=== PATIENT | female | born 1955 | race Caucasian/White ===

== ENCOUNTER 2020-09-13 12:06 | Observation (INO) | payer OTHER ==
--- NOTE | 2020-09-13 12:27 | ERPHSYRPT ---
- History of Present Illness Time Seen by Provider: 09/13/20 12:28 Historian: patient Exam Limitations: no limitations Physician History: Patient is a 65-year-old female history of diabetes and hypercholesterolemia presents to our ED with complaints of chest pressure and left jaw pain. Symptoms started approximately 2 days ago. Symptoms have been constant. Patient also observed that her blood pressure is elevated. Symptoms are constant. Symptoms are mild to moderate in intensity. No specific worsening or improving factors. Patient followed up with her primary care doctor who advised patient to come to our ED for a cardiac work-up. Patient admits to experiencing shortness of breath with exertion however she attributes this to her age. Patient voices no other complaints or concerns at this time. Timing/Duration: yesterday Activities at Onset: none Quality: pressure Location: substernal Chest Pain Radiation: jaw Severity of Pain-Max: moderate Severity of Pain-Current: mild Modifying Factors: Improves With: nothing Associated Symptoms: denies symptoms Prior Chest Pain/Cardiac Workup: no prior chest pain Nitro Today/Relief: no nitro taken today Aspirin Treatment Today: no aspirin today Allergies/Adverse Reactions: No Known Drug Allergies Allergy (Verified 09/13/20 16:08) Home Medications: Atorvastatin Calcium 10 mg PO DAILY 09/13/20 [History] Meloxicam 15 mg PO DAILY 09/13/20 [History] Metformin HCl 500 mg [Glucophage 500 MG] 500 mg PO DAILY 09/13/20 [History] - Review of Systems Constitutional: No Symptoms, No Fever, No Chills Eyes: No Symptoms Ears, Nose, & Throat: No Symptoms Respiratory: No Symptoms, No Cough, No Dyspnea Cardiac: No Symptoms, No Chest Pain, No Edema, No Syncope Abdominal/Gastrointestinal: No Symptoms, No Abdominal Pain, No Nausea, No Vomiting, No Diarrhea Genitourinary Symptoms: No Symptoms, No Dysuria Musculoskeletal: No Symptoms, No Back Pain, No Neck Pain Skin: No Symptoms, No Rash Neurological: No Symptoms, No Dizziness, No Focal Weakness, No Sensory Changes Psychological: No Symptoms Endocrine: No Symptoms Hematologic/Lymphatic: No Symptoms Immunological/Allergic: No Symptoms All Other Systems: Reviewed and Negative - Nursing Vital Signs Nursing Vital Signs: Initial Vital Signs Temperature 97.5 F 09/13/20 12:14 Pulse Rate 78 09/13/20 12:14 Respiratory Rate 16 09/13/20 12:14 Blood Pressure 178/108 09/13/20 12:14 O2 Sat by Pulse Oximetry 98 09/13/20 12:14 Pain Scale Pain Intensity 0 - Physical Exam General Appearance: no apparent distress, alert Eye Exam: PERRL/EOMI, eyes nml inspection Ears, Nose, Throat Exam: normal ENT inspection, moist mucous membranes Neck Exam: normal inspection, non-tender, supple, full range of motion Respiratory Exam: normal breath sounds, lungs clear, No respiratory distress Cardiovascular Exam: regular rate/rhythm, normal heart sounds Gastrointestinal/Abdomen Exam: soft, No tenderness, No mass Back Exam: normal inspection, No CVA tenderness, No vertebral tenderness Extremity Exam: normal inspection, normal range of motion Neurologic Exam: alert, oriented x 3, cooperative, normal mood/affect, sensation nml, No motor deficits Skin Exam: normal color, warm, dry SpO2 Interpretation: normal O2 Delivery: Room Air - Course Nursing assessment & vital signs reviewed: Yes EKG Interpreted by Me: RATE (77), Sinus Rhythm, NORMAL AXIS, NORMAL INTERVALS - Radiology Exams Chest X-ray Interpretation: Teleradiologist Report (Chest demonstrates normal heart and lungs. Bony thorax intact with mild degenerative changes.) Ordered Tests: Active Orders 24 hr Category Date Time Status Bedrest with BRP/BSC ROUTINE Activity 09/13/20 15:45 Active Rubber Thread Spooler STAT Care 09/13/20 12:15 Completed Code Status Order ROUTINE Care 09/13/20 15:45 Active EKG-ER Only STAT Care 09/13/20 12:14 Completed IV Care Q6H Care 09/13/20 15:45 Active IV Insertion STAT Care 09/13/20 12:14 Completed Implement Chest Pain Pathway ROUTINE Care 09/13/20 15:[address] in Observation ROUTINE Care 09/13/20 15:45 Active Pulse Oximetry (ED) STAT Care 09/13/20 12:14 Completed Trenton Romero, Apply ROUTINE Care 09/13/20 15:45 Active Telemetry q6h Care 09/13/20 15:45 Active Weight,Daily 0600 Care 09/13/20 15:45 Active CHEST 1 VIEW (PORTABLE) Stat Exams 09/13/20 12:15 Completed CBC W DIFF Stat Lab 09/13/20 13:05 Completed CMP Stat Lab 09/13/20 13:05 Completed LIPID PROFILE AM.LAB Lab 09/14/20 04:00 Ordered MAGNESIUM Stat Lab 09/13/20 13:05 Completed NT PRO BNP Stat Lab 09/13/20 13:05 Completed TROPONIN Q3H Lab 09/13/20 13:05 Completed TROPONIN Q3H Lab 09/13/20 15:30 Completed TROPONIN Q3H Lab 09/13/20 18:15 Ordered TROPONIN Q3H Lab 09/13/20 21:15 Ordered TROPONIN Q3H Lab 09/14/20 00:15 Ordered UA W/RFX UR CULTURE Stat Lab 09/13/20 12:31 Completed EKG Q8HX2,QAMX3,PRN RT 09/13/20 15:45 Completed Pulse Oximetry Q4H RT 09/13/20 15:45 Active Transfer Order Routine Transfer 09/13/20 Completed Medication Summary Generic Name Dose Route Start Last Admin Trade Name Sara PRN Reason Stop Dose Admin Acetaminophen 650 mg 09/13/20 15:45 Tylenol 325 Mg PO 10/13/20 15:44 Q4H PRN PRN PAIN AND/OR FEVER Al Hydrox/Mg Hydrox/Simethicone 30 ml 09/13/20 15:45 Maalox Es 30 Ml Unit Dose PO 10/13/20 15:44 Q4H PRN PRN INDIGESTION Magnesium Hydroxide 30 - 60 ml 09/13/20 15:45 Milk Of Magnesia 30 Ml PO 10/13/20 15:44 QDP PRN CONSTIPATION Ondansetron HCl 4 mg 09/13/20 15:45 Zofran 4 Mg/2 Ml Vial IV 10/13/20 15:44 Q4H PRN PRN NAUSEA/VOMITING Senna/Docusate Sodium 2 udtab 09/13/20 15:45 Senokot-S Tablet PO 10/13/20 15:44 BID PRN PRN CONSTIPATION Discontinued Medications Generic Name Dose Route Start Last Admin Trade Name F[place]il[place] PRN Reason Stop Dose Admin Aspirin 324 mg 09/13/20 12:44 09/13/20 13:18 Baby Aspirin 81 Mg Chew PO 09/13/20 12:45 324 mg STAT ONE Administration Nitroglycerin 1 gm 09/13/20 15:14 09/13/20 15:21 Nitro-Bid 2% Ud Packets TOP 09/13/20 15:15 1 gm STAT ONE Administration Nitroglycerin Confirm 09/13/20 15:20 Nitro-Bid 2% Ud Packets Administered 09/13/20 15:21 Dose 1 gm .ROUTE .STK-MED ONE Lab/Rad Data: Laboratory Result Diagrams 09/13/20 13:05 09/13/20 13:05 Laboratory Results 09/13/20 09/13/20 09/13/20 Range/Units 15:30 13:05 13:05 WBC (4.0-10.5) K/mm3 RBC (4.1-5.4) M/mm3 Hgb (12.0-16.0) gm/dl Hct (35-47) % MCV (78-100) fl MCH (26-32) pg MCHC (32-36) g/dl RDW (11.5-14.0) % Plt Count (150-450) K/mm3 MPV (7.5-11.0) fl Gran % (36.0-66.0) % Eos # (Auto) (0-0.5) Absolute Lymphs (auto) (1.0-4.6) Absolute Monos (auto) (0.0-1.3) Lymphocytes % (24.0-44.0) % Monocytes % (0.0-12.0) % Eosinophils % (0.00-5.0) % Basophils % (0.0-0.4) % Absolute Granulocytes (1.4-6.9) Basophils # (0-0.4) Sodium 137 (137-145) mmol/L Potassium 4.4 (3.5-5.1) mmol/L Chloride 103 (98-107) mmol/L Carbon Dioxide 27 (22-30) mmol/L Anion Gap 11.1 (5-15) MEQ/L BUN 19 H (7-17) mg/dL Creatinine 1.07 H (0.52-1.04) mg/dL Estimated GFR 54.9 ML/MIN Glucose 107 H (74-106) mg/dL Calcium 10.3 H (8.4-10.2) mg/dL Magnesium 2.0 (1.6-2.3) mg/dL Total Bilirubin 0.50 (0.2-1.3) mg/dL AST 27 (14-36) U/L ALT 16 (0-35) U/L Alkaline Phosphatase 61 (38-126) U/L Troponin I < 0.012 < 0.012 (0.000-0.034) ng/mL NT-Pro-B Natriuret Pep 42.9 (0-900) pg/mL Serum Total Protein 7.9 (6.3-8.2) g/dL Albumin 4.6 (3.5-5.0) g/dL Urine Color (YELLOW) Urine Appearance (CLEAR) Urine pH (5-6) Ur Specific [place] (1.005-1.025) Urine Protein (Negative) Urine Ketones (NEGATIVE) Urine Blood (0-5) Jacob/ul Urine Nitrite (NEGATIVE) Urine Bilirubin (NEGATIVE) Urine Urobilinogen (0-1) mg/dL Ur Leukocyte Esterase (NEGATIVE) Urine WBC (Auto) (0-5) /HPF Urine RBC (Auto) (0-2) /HPF U Epithel Cells (Auto) (FEW) /HPF Urine Bacteria (Auto) (NEGATIVE) /HPF Urine Mucus (Auto) (NEGATIVE) /HPF Urine Culture Reflexed (NO) Urine Glucose (NEGATIVE) mg/dL 09/13/20 09/13/20 Range/Units 13:05 12:31 WBC 6.5 (4.0-10.5) K/mm3 RBC 4.58 (4.1-5.4) M/mm3 Hgb 13.5 (12.0-16.0) gm/dl Hct 41.6 (35-47) % MCV 90.8 (78-100) fl MCH 29.5 (26-32) pg MCHC 32.5 (32-36) g/dl RDW 13.3 (11.5-14.0) % Plt Count 236 (150-450) K/mm3 MPV 10.9 (7.5-11.0) fl Gran % 61.0 (36.0-66.0) % Eos # (Auto) 0.20 (0-0.5) Absolute Lymphs (auto) 1.88 (1.0-4.6) Absolute Monos (auto) 0.42 (0.0-1.3) Lymphocytes % 29.1 (24.0-44.0) % Monocytes % 6.5 (0.0-12.0) % Eosinophils % 3.1 (0.00-5.0) % Basophils % 0.3 (0.0-0.4) % Absolute Granulocytes 3.94 (1.4-6.9) Basophils # 0.02 (0-0.4) Sodium (137-145) mmol/L Potassium (3.5-5.1) mmol/L Chloride (98-107) mmol/L Carbon Dioxide (22-30) mmol/L Anion Gap (5-15) MEQ/L BUN (7-17) mg/dL Creatinine (0.52-1.04) mg/dL Estimated GFR ML/MIN Glucose (74-106) mg/dL Calcium (8.4-10.2) mg/dL Magnesium (1.6-2.3) mg/dL Total Bilirubin (0.2-1.3) mg/dL AST (14-36) U/L ALT (0-35) U/L Alkaline Phosphatase (38-126) U/L Troponin I (0.000-0.034) ng/mL NT-Pro-B Natriuret Pep (0-900) pg/mL Serum Total Protein (6.3-8.2) g/dL Albumin (3.5-5.0) g/dL Urine Color YELLOW (YELLOW) Urine Appearance CLEAR (CLEAR) Urine pH 6.0 (5-6) Ur Specific [place] 1.014 (1.005-1.025) Urine Protein NEGATIVE (Negative) Urine Ketones NEGATIVE (NEGATIVE) Urine Blood NEGATIVE (0-5) Jacob/ul Urine Nitrite NEGATIVE (NEGATIVE) Urine Bilirubin NEGATIVE (NEGATIVE) Urine Urobilinogen 2 (0-1) mg/dL Ur Leukocyte Esterase NEGATIVE (NEGATIVE) Urine WBC (Auto) NONE (0-5) /HPF Urine RBC (Auto) 0-2 (0-2) /HPF U Epithel Cells (Auto) NONE (FEW) /HPF Urine Bacteria (Auto) NONE (NEGATIVE) /HPF Urine Mucus (Auto) SLIGHT (NEGATIVE) /HPF Urine Culture Reflexed NO (NO) Urine Glucose NEGATIVE (NEGATIVE) mg/dL - Progress Progress: improved Air Movement: good Progress Note: 09/13/20 18:11 Patient reassessed. No active chest pain at this time. In light of patient's risk factors and complaints we will admit patient for further evaluation and treatment of Chest pain /ACS Case discussed with Dr Luna. Plan of care discussed with patient. She agrees to admission [facility] for further evaluation and treatment. Blood Culture(s) Obtained: No Antibiotics given: No Discussed with : Simona - Departure Departure Disposition: Observation Clinical Impression: ACS (acute coronary syndrome), SOB (shortness of breath) Condition: Stable Critical Care Time: No
--- NOTE | 2020-09-13 12:42 | XRAY ---
Indication: Chest pain. Comparison: None Portable chest demonstrates normal heart and lungs. Bony thorax intact with mild degenerative changes.
[2020-09-13] MEDS ORDERED: BABY ASPIRIN 81 MG CHEW PO ONE (12:44)
[2020-09-13 12:55] LABS: Appearance CLEAR (CLEAR); Bilirubin NEGATIVE (NEGATIVE); Blood NEGATIVE Ery/ul (0-5); Glucose NEGATIVE (NEGATIVE); Ketones NEGATIVE (NEGATIVE); Leukocyte Esterase NEGATIVE (NEGATIVE); Mucus SLIGHT /HPF (NEGATIVE); Nitrite NEGATIVE (NEGATIVE); Protein,Urine Dip NEGATIVE (Negative); RBC 0-2 /HPF (0-2); Specific Gravity 1.014 (1.005-1.025); Urobilinogen 2 mg/dL (0-1)
[2020-09-13 13:10] LABS: Absolute Neutrophil Ct (ANC) 3.94 (1.4-6.9); BASOPHIL % 0.3 % (0.0-0.4); Basophil (Absolute #) 0.02 (0-0.4); Eosinophil % 3.1 % (0.00-5.0); Hematocrit 41.6 % (35-47); Hemoglobin 13.5 gm/dl (12.0-16.0); Lymphocyte (Absolute #) 1.88 (1.0-4.6); Lymphocytes % 29.1 % (24.0-44.0); Mean Cell Volume 90.8 fl (78-100); Mean Corpuscular Hemoglobin 29.5 pg (26-32); Mean Corpuscular Hgb Concent. 32.5 g/dl (32-36); Mean Platelet Volume 10.9 fl (7.5-11.0); Monocyte (Absolute #) 0.42 (0.0-1.3); Monocytes % 6.5 % (0.0-12.0); Platelet Count 236 K/mm3 (150-450); Red Blood Count 4.58 M/mm3 (4.1-5.4); Red Cell Distribution Width 13.3 % (11.5-14.0); White Blood Count 6.5 K/mm3 (4.0-10.5)
[2020-09-13 13:30] LABS: ALBUMIN 4.6 g/dL (3.5-5.0); ANION GAP 11.1 MEQ/L (5-15); BILIRUBIN,TOTAL 0.5 mg/dL (0.2-1.3); Calcium 10.3 mg/dL (8.4-10.2); Creatinine 1 1.07 mg/dL (0.52-1.04); EST GLOMERULAR FILTRATION RATE 54.9 ML/MIN; NT PRO BNP 42.9 pg/mL (0-900); Potassium 4.4 mmol/L (3.5-5.1); Total Protein 7.9 g/dL (6.3-8.2)
[2020-09-13] MEDS ORDERED: NITRO-BID 2% UD PACKETS TOP ONE (15:14)
[2020-09-13] MEDS ORDERED: NITRO-BID 2% UD PACKETS ONE (15:20)
[2020-09-13] MEDS ORDERED: MILK OF MAGNESIA 30 ML PO PRN (15:45)
[2020-09-13] MEDS ORDERED: Zofran 4 MG/2 ML VIAL IV PRN (15:45)
[2020-09-13] MEDS ORDERED: MAALOX ES 30 ML UNIT DOSE PO PRN (15:45)
[2020-09-13] MEDS ORDERED: Senokot-S Tablet PO PRN (15:45)
[2020-09-13] MEDS ORDERED: TYLENOL 325 MG PO PRN (15:45)
[2020-09-14 05:31] LABS: Risk Ratio 3.9
[2020-09-14 12:22] VITALS: BP 159/82; PULSE 86; O2SAT 95
--- NOTE | 2020-09-14 13:26 | PCM.SSS ---
History of Present Illness - Chief Complaint Chief Complaint: ACS History of Present Illness: is a 65 year old female with DM2,HLD admitted from ER with chest pain and left jaw pain ,CARRILLO and HTN urgency with B/P up to 180/88 at home the day of admission. Medications & Allergies Home Medications: Home Medication List Atorvastatin Calcium 10 mg PO DAILY 09/13/20 [History Confirmed 09/13/20] Meloxicam 15 mg PO DAILY 09/13/20 [History Confirmed 09/13/20] Metformin HCl 500 mg [Glucophage 500 MG] 500 mg PO DAILY 09/13/20 [History Confirmed 09/13/20] Allergies/Adverse Reactions: Allergies Allergy/AdvReac Type Severity Reaction Status Date / Time No Known Drug Allergies Allergy Verified 09/13/20 16:08 - Past Medical History Past Medical History: Yes Cardiac History: High Cholesterol Endocrine Medical History: Other Comment: borderline diabetic - Past Surgical History Past Surgical History: Yes GI Surgical History: Appendectomy, Cholecystectomy Genitourinary Surgical Hx: No Pertinent History Musculskeletal Surgical Hx: No Pertinent History Female Surgical History: Tubal Ligation Other Surgical History: cyst removed from breast and ovary - Social History Smoking Status: Never smoker Exposure to second hand smoke: No Alcohol: None Drug Use: none - Physical Exam Vital Signs: Vital Signs - 24 hr Temp Pulse Resp BP Pulse Ox 09/14/20 12:00 98.3 F 86 15 159/82 95 09/14/20 08:00 97.6 F 69 16 163/74 94 L 09/14/20 07:25 95 09/14/20 04:00 97.3 F 91 H 14 142/79 96 09/14/20 00:00 97.2 F 95 H 16 130/69 95 09/13/20 20:00 96 09/13/20 19:49 96 09/13/20 19:33 98.7 F 98 H 20 142/71 96 09/13/20 16:11 98.2 F 70 98 09/13/20 16:00 98 09/13/20 15:45 98.2 F 70 16 193/90 99 09/13/20 15:00 72 16 161/77 96 09/13/20 14:41 66 15 153/96 97 09/13/20 13:45 71 19 184/84 97 Results - Labs Lab/Micro Results: Lab Results-Last 24 Hours 09/13/20 09/13/20 09/13/20 Range/Units 13:05 13:05 15:30 Sodium 137 (137-145) mmol/L Potassium 4.4 (3.5-5.1) mmol/L Chloride 103 (98-107) mmol/L Carbon Dioxide 27 (22-30) mmol/L Anion Gap 11.1 (5-15) MEQ/L BUN 19 H (7-17) mg/dL Creatinine 1.07 H (0.52-1.04) mg/dL Estimated GFR 54.9 ML/MIN Glucose 107 H (74-106) mg/dL Calcium 10.3 H (8.4-10.2) mg/dL Magnesium 2.0 (1.6-2.3) mg/dL Total Bilirubin 0.50 (0.2-1.3) mg/dL AST 27 (14-36) U/L ALT 16 (0-35) U/L Alkaline Phosphatase 61 (38-126) U/L Troponin I < 0.012 < 0.012 (0.000-0.034) ng/mL NT-Pro-B Natriuret Pep 42.9 (0-900) pg/mL Serum Total Protein 7.9 (6.3-8.2) g/dL Albumin 4.6 (3.5-5.0) g/dL Triglycerides (30-150) mg/dL Cholesterol (50-200) mg/dL LDL Cholesterol (30-100) mg/dL HDL Cholesterol (40-60) mg/dL Heart Disease Risk Ratio 09/13/20 09/13/20 09/14/20 Range/Units 18:20 21:25 00:20 Sodium (137-145) mmol/L Potassium (3.5-5.1) mmol/L Chloride (98-107) mmol/L Carbon Dioxide (22-30) mmol/L Anion Gap (5-15) MEQ/L BUN (7-17) mg/dL Creatinine (0.52-1.04) mg/dL Estimated GFR ML/MIN Glucose (74-106) mg/dL Calcium (8.4-10.2) mg/dL Magnesium (1.6-2.3) mg/dL Total Bilirubin (0.2-1.3) mg/dL AST (14-36) U/L ALT (0-35) U/L Alkaline Phosphatase (38-126) U/L Troponin I < 0.012 < 0.012 < 0.012 (0.000-0.034) ng/mL NT-Pro-B Natriuret Pep (0-900) pg/mL Serum Total Protein (6.3-8.2) g/dL Albumin (3.5-5.0) g/dL Triglycerides (30-150) mg/dL Cholesterol (50-200) mg/dL LDL Cholesterol (30-100) mg/dL HDL Cholesterol (40-60) mg/dL Heart Disease Risk Ratio 09/14/20 Range/Units 04:15 Sodium (137-145) mmol/L Potassium (3.5-5.1) mmol/L Chloride (98-107) mmol/L Carbon Dioxide (22-30) mmol/L Anion Gap (5-15) MEQ/L BUN (7-17) mg/dL Creatinine (0.52-1.04) mg/dL Estimated GFR ML/MIN Glucose (74-106) mg/dL Calcium (8.4-10.2) mg/dL Magnesium (1.6-2.3) mg/dL Total Bilirubin (0.2-1.3) mg/dL AST (14-36) U/L ALT (0-35) U/L Alkaline Phosphatase (38-126) U/L Troponin I (0.000-0.034) ng/mL NT-Pro-B Natriuret Pep (0-900) pg/mL Serum Total Protein (6.3-8.2) g/dL Albumin (3.5-5.0) g/dL Triglycerides 137 (30-150) mg/dL Cholesterol 146 (50-200) mg/dL LDL Cholesterol 82 (30-100) mg/dL HDL Cholesterol 38 L (40-60) mg/dL Heart Disease Risk Ratio 3.9 - Radiology Impressions Radiology Exams & Impressions: Radiology Procedures Category Date Time Status CHEST 1 VIEW (PORTABLE) Stat Exams 09/13/20 12:15 Completed ECHO W/2D AND DOPPLER [US] Routine Exams 09/14/20 10:57 Taken - Other Procedures and Tests Respiratory Therapy 09/15/20 05:00 EKG ONCE 09/16/20 05:00 EKG ONCE Hospital Summary - Vitals & Intake/Output Vital Signs: Vital Signs Temperature 98.3 F 09/14/20 12:00 Pulse Rate 86 09/14/20 12:00 Respiratory Rate 15 09/14/20 12:00 Blood Pressure 159/82 09/14/20 12:00 O2 Sat by Pulse Oximetry 95 09/14/20 12:00 Intake & Output: Intake & Output 09/12/20 09/13/20 09/14/20 09/15/20 11:59 11:59 11:59 11:59 Intake Total 1320 240 Output Total 850 Balance 470 240 Weight 113.5 kg - Lab Result Diagrams: 09/13/20 13:05 09/13/20 13:05 Lab Results-Last 24 Hrs: Lab Results-Last 24 Hours 09/13/20 09/13/20 09/13/20 Range/Units 13:05 13:05 15:30 Sodium 137 (137-145) mmol/L Potassium 4.4 (3.5-5.1) mmol/L Chloride 103 (98-107) mmol/L Carbon Dioxide 27 (22-30) mmol/L Anion Gap 11.1 (5-15) MEQ/L BUN 19 H (7-17) mg/dL Creatinine 1.07 H (0.52-1.04) mg/dL Estimated GFR 54.9 ML/MIN Glucose 107 H (74-106) mg/dL Calcium 10.3 H (8.4-10.2) mg/dL Magnesium 2.0 (1.6-2.3) mg/dL Total Bilirubin 0.50 (0.2-1.3) mg/dL AST 27 (14-36) U/L ALT 16 (0-35) U/L Alkaline Phosphatase 61 (38-126) U/L Troponin I < 0.012 < 0.012 (0.000-0.034) ng/mL NT-Pro-B Natriuret Pep 42.9 (0-900) pg/mL Serum Total Protein 7.9 (6.3-8.2) g/dL Albumin 4.6 (3.5-5.0) g/dL Triglycerides (30-150) mg/dL Cholesterol (50-200) mg/dL LDL Cholesterol (30-100) mg/dL HDL Cholesterol (40-60) mg/dL Heart Disease Risk Ratio 01/09/13/20 09/14/20 Range/Units 18:20 21:25 00:20 Sodium (137-145) mmol/L Potassium (3.5-5.1) mmol/L Chloride (98-107) mmol/L Carbon Dioxide (22-30) mmol/L Anion Gap (5-15) MEQ/L BUN (7-17) mg/dL Creatinine (0.52-1.04) mg/dL Estimated GFR ML/MIN Glucose (74-106) mg/dL Calcium (8.4-10.2) mg/dL Magnesium (1.6-2.3) mg/dL Total Bilirubin (0.2-1.3) mg/dL AST (14-36) U/L ALT (0-35) U/L Alkaline Phosphatase (38-126) U/L Troponin I < 0.012 < 0.012 < 0.012 (0.000-0.034) ng/mL NT-Pro-B Natriuret Pep (0-900) pg/mL Serum Total Protein (6.3-8.2) g/dL Albumin (3.5-5.0) g/dL Triglycerides (30-150) mg/dL Cholesterol (50-200) mg/dL LDL Cholesterol (30-100) mg/dL HDL Cholesterol (40-60) mg/dL Heart Disease Risk Ratio 09/14/20 Range/Units 04:15 Sodium (137-145) mmol/L Potassium (3.5-5.1) mmol/L Chloride (98-107) mmol/L Carbon Dioxide (22-30) mmol/L Anion Gap (5-15) MEQ/L BUN (7-17) mg/dL Creatinine (0.52-1.04) mg/dL Estimated GFR ML/MIN Glucose (74-106) mg/dL Calcium (8.4-10.2) mg/dL Magnesium (1.6-2.3) mg/dL Total Bilirubin (0.2-1.3) mg/dL AST (14-36) U/L ALT (0-35) U/L Alkaline Phosphatase (38-126) U/L Troponin I (0.000-0.034) ng/mL NT-Pro-B Natriuret Pep (0-900) pg/mL Serum Total Protein (6.3-8.2) g/dL Albumin (3.5-5.0) g/dL Triglycerides 137 (30-150) mg/dL Cholesterol 146 (50-200) mg/dL LDL Cholesterol 82 (30-100) mg/dL HDL Cholesterol 38 L (40-60) mg/dL Heart Disease Risk Ratio 3.9 - Radiology Exams Ordered Rad Exams-Entire Visit: Radiology Procedures Category Date Time Status CHEST 1 VIEW (PORTABLE) Stat Exams 09/13/20 12:15 Completed ECHO W/2D AND DOPPLER [US] Routine Exams 09/14/20 10:57 Taken - Procedures and Test Procedures and Tests throughout Hospitalization: Therapy Orders & Screens 09/13/20 15:45 EKG Q8HX2,QAMX3,PRN Comment: 09/13/20 20:45 EKG ONCE Comment: Diagnosis: ACS 09/14/20 05:00 EKG ONCE Comment: Diagnosis: ACS 09/15/20 05:00 EKG ONCE Comment: Diagnosis: ACS 09/16/20 05:00 EKG ONCE Comment: Diagnosis: ACS - Discharge Disposition: Home, Self-Care Condition: Stable Prescriptions: No Action Metformin HCl 500 mg [Glucophage 500 MG] 500 mg PO DAILY Meloxicam 15 mg PO DAILY Atorvastatin Calcium 10 mg PO DAILY Follow up with: ARABELLA MORA DO [Primary Care Provider] - 09/21/20 10:30 am Rodrigo Seo MD [CONSULTING PHYSICIAN] - 09/20/20 2:15 pm
--- NOTE | 2020-09-14 13:44 | PCM.DCORD ---
- Discharge Disposition: Home, Self-Care Condition: Stable Prescriptions: New Amlodipine Besylate 5 mg [Norvasc 5 mg] 5 mg PO DAILY #30 tablet Continue Metformin HCl 500 mg [Glucophage 500 MG] 500 mg PO DAILY Meloxicam 15 mg PO DAILY Atorvastatin Calcium 10 mg PO DAILY Follow up with: ARABELLA MORA DO [Primary Care Provider] - 09/21/20 10:30 am Rodrigo Seo MD [CONSULTING PHYSICIAN] - 09/20/20 2:15 pm
== END 2020-09-14 13:59 | disposition home or self-care (01) ==
LOC: ED 12:06 → MED SURG 15:40
PROVIDERS: ADMIT Family Medicine; ATTEND Family Medicine
DX: R07.9 Chest pain, unspecified (principal); R68.84 Jaw pain; I16.0 Hypertensive urgency; Z79.899 Other long term (current) drug therapy; E11.9 Type 2 diabetes mellitus without complications; E78.00 Pure hypercholesterolemia, unspecified; R06.02 Shortness of breath
CPT/HCPCS: 36000; 36415; 71045; 80053; 80061; 81001; 83721; 83735; 83880; 84484; 85025; 93005; 93041; 93268; 93306; 94760; 99285; G0378; A9270-GY

== ENCOUNTER 2021-11-10 09:03 | Day surgery (SDC) | payer MEDICARE ==
[2021-11-10] MEDS ORDERED: Xylocaine 1% Vial 30 ML PF IJ ONE (09:04)
[2021-11-10] MEDS ORDERED: Depo-Medrol 40 MG/ML IM ONE (09:04)
[2021-11-10] MEDS ORDERED: BUPIVACAINE 0.5% VIAL IJ ONE (09:04)
--- NOTE | 2021-11-10 13:13 | XRAY ---
Indication: Bilateral SI joint injection Intraoperative fluoroscopy provided for 20 seconds. 3 digital spot images submitted for interpretation demonstrates posterior needle tip projecting over the inferior right SI joint. Small amount of contrast injected for needle tip placement. Correlate with intraoperative findings/report.
--- NOTE | 2021-11-10 15:33 | XRAY ---
20 seconds of fluoroscopy was used in surgery for bilateral sacroiliac joint injections.
== END 2021-11-10 11:20 | disposition home or self-care (01) ==
LOC: SDC-PAIN 09:03
PROVIDERS: ATTEND Psychiatry & Neurology Pain Medicine
DX: M46.1 Sacroiliitis, not elsewhere classified (principal); E11.9 Type 2 diabetes mellitus without complications; Z79.899 Other long term (current) drug therapy
CPT/HCPCS: 27096; 72202; 77002; 82947; G0260; J1030; J2001

== ENCOUNTER 2022-07-03 12:24 | Day surgery (SDC) | payer MEDICARE ==
[~2022-07-03 12:24] MED LIST: Lactated Ringers 1,000 ML IV SCH
[2022-07-03] MEDS ORDERED: Lactated Ringers 1,000 ML IV ONE (12:41)
[2022-07-03] MEDS ORDERED: Versed 2 MG/2 ML Injection ONE (14:02)
[2022-07-03] MEDS ORDERED: DIPRIVAN 200 MG/20 ML IV ONE ×2 (14:02→14:32)
[2022-07-03] MEDS ORDERED: Xylocaine-Mpf 2% 5 Ml Vial ONE (14:02)
[2022-07-03] MEDS ORDERED: Ketamine HCl 50 MG/ML ONE (14:03)
[2022-07-03] MEDS ORDERED: PHENYLEPHRINE HCL ONE (14:44)
[2022-07-03 15:30] VITALS: O2SAT 96
[2022-07-03 16:00] VITALS: BP 130/64; PULSE 72
--- NOTE | 2022-08-01 11:27 | OP ---
PROCEDURE DATE/TIME: 07/03/2022 1406 PREOPERATIVE DIAGNOSIS: Positive Cologuard test. POSTOPERATIVE DIAGNOSES: 1) Diverticulosis. 2) Polyps. 3) Mild internal and external hemorrhoids. PROCEDURES: 1) Colonoscopy with cold snare polypectomy x2. 2) Cold forceps polypectomy x6. PROCEDURE PERFORMED BY: Karla Wilde M.D. ANESTHESIA: MAC. ESTIMATED BLOOD LOSS: Minimal. COMPLICATIONS: None. SPECIMENS: 1) Proximal ascending colon polyp. 2) Descending colon polyp. 3) Sigmoid colon polyp. 4) Sigmoid polyp x2. 5) Rectal polyp x3. HISTORY: This is a patient who had a positive Cologuard test and presents for colonoscopy. Risks, benefits, alternatives, H&P and consent all reviewed with her and confirmed. She was seen personally. DESCRIPTION OF PROCEDURE: She was then brought to the endoscopy suite, laid in left lateral decubitus position. A complete time out was performed. First a rectal exam was done this was essentially normal other than mild internal and external hemorrhoidal disease. There were no masses. The scope was then inserted and gently advanced to the level of the cecum. The appendiceal orifice and ileocecal valve were visualized and these were normal. She had a small amount of stool. Overall the prep was good. The scope was able to be withdrawn taking a circumferential view and irrigating the remaining stool. He did have multiple polyps. There were six very small polyps less than 2 to 3 mm in size. These were all sessile or semi-sessile in nature and are as follows: In the proximal ascending colon, two in the sigmoid colon and three in the rectal area. All of these are taken with cold forceps in entirety. She also had one descending colon polyp that was also small but larger than the others as well as another sigmoid colon polyp that was again small but larger than the others. Both of these two were less than 6 mm in size and taken with cold snare in entirety. These were semi-pedunculated. All sites of polypectomy were hemostatic. All polyps were removed in entirety. The patient tolerated the procedure well. She did have multiple diverticula identified throughout her left colon. Other than this the remaining mucosa looked normal and healthy. The patient tolerated the procedure well. No immediate complications. She is going to be discharged home. I discussed with her family postoperatively and she will also be following up with me in the office. Tentative plan for colonoscopy in three years due to the findings of multiple polyps.
== END 2022-07-03 16:00 | disposition home or self-care (01) ==
LOC: SDC 12:24
PROVIDERS: ATTEND Surgery
DX: K57.30 Diverticulosis of large intestine without perforation or abscess without bleeding (principal); R19.5 Other fecal abnormalities; D12.7 Benign neoplasm of rectosigmoid junction; D12.4 Benign neoplasm of descending colon; D12.5 Benign neoplasm of sigmoid colon; K64.4 Residual hemorrhoidal skin tags; K64.8 Other hemorrhoids; E11.9 Type 2 diabetes mellitus without complications
CPT/HCPCS: 82947; 88305; J2250; J2370; J2704

== ENCOUNTER 2023-04-11 15:13 | Day surgery (SDC) | payer MEDICARE, SELFPAY ==
[2023-04-11] MEDS ORDERED: BUPIVACAINE 0.5% VIAL IJ ONE (15:14)
[2023-04-11] MEDS ORDERED: Depo-Medrol 40 MG/ML IM ONE (15:14)
[2023-04-11] MEDS ORDERED: LIDOCAINE HCL 1% 50 MG/5 ML VL PF IJ ONE (15:14)
[2023-04-11] MEDS ORDERED: Decadron 4 MG INJ IV ONE (15:14)
--- NOTE | 2023-04-11 16:57 | XRAY ---
Indication: Bilateral SI joint and left piriformis injection. Intraoperative fluoroscopy provided for 26 seconds. 5 digital spot image submitted for interpretation demonstrates posterior needle tip projecting over the expected left and right SI joint. Additional needle tip projects over left piriformis with small amount of contrast injected for needle tip placement. Correlate with intraoperative findings/report.
--- NOTE | 2023-04-11 17:34 | XRAY ---
26 seconds of fluoroscopy was used in surgery for a bilateral sacroiliac joint and left piriformis injection.
== END 2023-04-11 16:20 | disposition home or self-care (01) ==
LOC: SDC-PAIN 15:13
PROVIDERS: ATTEND Psychiatry & Neurology Pain Medicine
DX: M46.1 Sacroiliitis, not elsewhere classified (principal); M79.18 Myalgia, other site; E11.9 Type 2 diabetes mellitus without complications; Z79.899 Other long term (current) drug therapy
CPT/HCPCS: 27096; 72202; 77002; 82947; G0260; J1030; J1100; J2001; Q9966

== ENCOUNTER 2024-01-03 11:15 | Emergency (ER) | payer MEDICARE, SELFPAY ==
[2024-01-03 11:35] VITALS: TEMP 98.1
--- NOTE | 2024-01-03 12:10 | XRAY ---
Indication: Pain and swelling. No known injury. Comparison: None 3 view right ankle demonstrates nonspecific effusion and large posterior/small plantar heel spurs. Also mild focal soft tissue swelling site Achilles tendon insertion, possibly inflammatory in etiology. No other bony, articular, or soft tissue abnormalities.
--- NOTE | 2024-01-03 12:10 | XRAY ---
Indication: Pain and swelling. No known injury. Comparison: None 3 nonweightbearing views right foot demonstrates moderate 1st MTP degenerative changes with bunion deformity. Incidental heel spurs and cuboid accessory ossicle. No other bony, articular, or soft tissue abnormalities. Ankle reported separately.
[2024-01-03 14:06] LABS: ALBUMIN 4.5 g/dL (3.5-5.0); ANION GAP 12.3 MEQ/L (5-15); BILIRUBIN,TOTAL 0.4 mg/dL (0.2-1.3); Calcium 10.2 mg/dL (8.4-10.2); Creatinine 1 1.35 mg/dL (0.52-1.04); EST GLOMERULAR FILTRATION RATE 43.1 ML/MIN; Potassium 4.3 mmol/L (3.5-5.1); Total Protein 7.3 g/dL (6.3-8.2)
[2024-01-03 14:12] VITALS: RESP 16; O2SAT 98
--- NOTE | 2024-01-03 14:21 | ERPHSYRPT ---
- History of Present Illness Time Seen by Provider: 01/03/24 11:38 Source: patient Exam Limitations: no limitations Patient Subjective Stated Complaint: pt states she was cutting chicken and she was unable to move her rt ankle and foot Triage Nursing Assessment: pt ambulated into the er; pt is axo x4; c/o rt ankle pain; pt denies pain; pt states 10/10 when ambulating; strong rt pedal pulse; good cap refill to RLE; swelling present to rt ankle; no respiratory distress present; skin PDW; vitals wnl Physician History: 68-year-old female with history of hypertension, hyperlipidemia, diabetes mellitus, gout presented in the ER with sudden onset right ankle pain and swelling while she was cutting chicken. Patient denies any trauma or fall, twisting movements. Patient noted swelling on the lateral side of ankle, hurts to walk especially in the ankle and heel area. No numbness or tingling in the toes. Has history of gout but denies having symptoms in the ankle area. No redness of ankle reported. Allergies/Adverse Reactions: Swdlzos-[id number] Reductase Inhibitor Adverse Reaction (Verified 01/03/24 11:23) Muscle Aches Home Medications: Allopurinol 100 mg [Zyloprim 100 mg] 300 mg PO BID 06/15/22 [History] Semaglutide [Ozempic] 1 dose SQ WEEKLY 06/15/22 [History] Aspirin [Aspirin EC] 81 mg PO DAILY 01/03/24 [History] Clopidogrel Bisulfate [Plavix] 75 mg PO DAILY 01/03/24 [History] Evolocumab [Repatha Syringe] 140 mg SQ WEEKLY 01/03/24 [History] Ezetimibe [Zetia] 10 mg PO DAILY 01/03/24 [History] Furosemide [Lasix] 20 mg PO DAILY PRN 01/03/24 [History] Losartan Potassium 12.5 mg PO DAILY 01/03/24 [History] Metoprolol Tartrate 25 mg [Lopressor 25MG Tab] 25 mg PO BID 01/03/24 [History] Sertraline HCl [Zoloft] 25 mg PO DAILY 01/03/24 [History] Hx Tetanus, Diphtheria Vaccination/Date Given: No Hx Influenza Vaccination/Date Given: No Hx Pneumococcal Vaccination/Date Given: No Immunizations Up to Date: No Travel Risk - International Travel Have you traveled outside of the country in past 3 weeks: No - Emerging Infectious Disease Are you exhibiting symptoms associated with any current EIDs: No - Review of Systems Constitutional: No Symptoms Ears, Nose, & Throat: No Symptoms Respiratory: No Symptoms Cardiac: No Symptoms Abdominal/Gastrointestinal: No Symptoms Genitourinary Symptoms: No Symptoms Musculoskeletal: Joint Pain, Joint Swelling Skin: No Symptoms Neurological: No Symptoms - Past Medical History Pertinent Past Medical History: Yes Neurological History: No Pertinent History ENT History: No Pertinent History Cardiac History: High Cholesterol, Hypertension Respiratory History: Sleep Apnea Endocrine Medical History: Diabetes Type II, Other Musculoskeletal History: No Pertinent History, Other GI Medical History: No Pertinent History History: No Pertinent History Psycho-Social History: No Pertinent History Female Reproductive Disorders: No Pertinent History Other Medical History: borderline diabetic, gout - Past Surgical History Past Surgical History: Yes Neuro Surgical History: No Pertinent History Cardiac: No Pertinent History Respiratory: No Pertinent History Gastrointestinal: Appendectomy, Cholecystectomy Genitourinary: No Pertinent History Musculoskeletal: No Pertinent History Female Surgical History: Tubal Ligation Other Surgical History: cyst removed from breast and ovary,colonoscopy - Social History Smoking Status: Never smoker Exposure to second hand smoke: No Drug Use: none Patient Lives Alone: No - Nursing Vital Signs Nursing Vital Signs: Initial Vital Signs Temperature 98.1 F 01/03/24 11:26 Pulse Rate 73 01/03/24 11:26 Respiratory Rate 14 01/03/24 11:26 Blood Pressure 134/84 01/03/24 11:26 O2 Sat by Pulse Oximetry 97 01/03/24 11:26 Pain Scale Pain Intensity 0 - Physical Exam General Appearance: no apparent distress, alert Neck Exam: normal inspection, full range of motion Cardiovascular/Respiratory Exam: normal breath sounds, regular rate/rhythm Back Exam: normal range of motion Legs Exam: bilateral leg: non-tender, normal inspection, normal range of motion, no evidence of injury Knees Exam: bilateral knee: non-tender, normal inspection, normal range of motion, no evidence of injury Ankle Exam: right ankle: bone tenderness (Lateral malleolus), soft tissue tenderness, swelling (Lateral malleolus and Achilles area), left ankle: non-ten cole, normal inspection, bilateral ankle: normal range of motion, no evidence of injury Foot Exam: bilateral foot: non-tender, normal inspection, normal range of motion Neuro/Tendon Exam: normal sensation, normal motor functions, normal tendon functions Mental Status Exam: alert, oriented x 3, cooperative, agitated Skin Exam: normal color SpO2 Interpretation: normal SpO2: 98 O2 Delivery: Room Air Ordered Tests: Active Orders 24 hr Category Date Time Status ANKLE (3 VIEWS) Stat Exams 01/03/24 11:22 Completed FOOT (MINIMUM 3 VIEWS) Stat Exams 01/03/24 11:22 Completed CMP Stat Lab 01/03/24 13:35 Completed Uric Acid Stat Lab 01/03/24 13:35 Completed Lab/Rad Data: Laboratory Result Diagrams 01/03/24 13:35 Laboratory Results 01/03/24 01/03/24 Range/Units 13:35 13:35 Sodium 140 (135-145) mmol/L Potassium 4.3 (3.5-5.1) mmol/L Chloride 106 (98-107) mmol/L Carbon Dioxide 25 (22-30) mmol/L Anion Gap 12.3 (5-15) MEQ/L BUN 24 H (7-17) mg/dL Creatinine 1.35 H (0.52-1.04) mg/dL Estimated GFR 43.1 ML/MIN Glucose 88 (74-106) mg/dL Uric Acid 4.6 (2.6-6.0) mg/dL Calcium 10.2 (8.4-10.2) mg/dL Total Bilirubin 0.40 (0.2-1.3) mg/dL AST 24 (14-36) U/L ALT 14 (0-35) U/L Alkaline Phosphatase 63 (38-126) U/L Serum Total Protein 7.3 (6.3-8.2) g/dL Albumin 4.5 (3.5-5.0) g/dL - Progress Progress: unchanged Progress Note: 01/03/24 14:18 68-year-old is evaluated in the ER for right ankle pain and swelling sudden onset without any known trauma/injury. Patient has no signs of cellulitis/septic joint. No increased temperature. Soft tissue swelling and tenderness in the lateral malleolus area. X-rays showed small effusion in the ankle area but no obvious fracture dislocation in the foot and ankle. I have discussed with Dr. Bernal who thinks patient possibly have tendinitis/bursitis, recommended Christopher wrap, long walking boot, weightbearing as tolerated and symptomatic care with outpatient follow-up in the next 2 to 3 days. Also recommended obtaining uric acid and basic chemistries. Baseline chemistries showed patient has CKD which is stable around baseline creatinine of 1.3. Uric acid is normal. I would give her some pain medication and have her outpatient follow-up. Discussed signs symptoms of worsening needing return to ER which she seems understanding. Stable for discharge. Discussed with Dr.: Other (Dr. Bernal podiatry) Will see patient in: office Counseled pt/family regarding: lab results, diagnosis, need for follow-up, rad results Medical Desision Making - Discussion of managment Care discussed with:: specialist (Podiatry Dr. Burks) Reviewed:: Test results, Need for additional workup Agreed on:: Treatment plan, need for follow-up Will see patient: In office - Diagnostic Testing Diagnostic test were ordered, analyzed, and reviewed by me: Yes Radiological Interpretation: Reviewed by me - Risk of complications The pt has a mod risk of morbidity or mortality based on: Need for prescription drug management - Departure Departure Disposition: Home Clinical Impression: Bursitis of right ankle, Acute ankle pain Condition: Stable Critical Care Time: No Referrals: KYLE SHAY DO [Primary Care Provider] - Follow up with PCP 1 day KARL BHATT DPM [ACTIVE STAFF] - Follow up/PCP as directed (Call for appointment for reevaluation in the morning) Instructions: Bursitis, Ankle sprain Additional Instructions: Intermittent ice application. Keep it elevated. Weightbearing as tolerated. Avoid exertional activities. Follow-up with podiatry for reevaluation. Return to ER for increasing pain swelling, difficulty movements etc. Prescriptions: Tramadol HCl 50 mg [Ultram 50 mg] 50 mg PO Q6HPRN PRN 3 Days #12 tablet PRN Reason: Pain
[2024-01-03 14:44] VITALS: BP 114/70; PULSE 66
== END 2024-01-03 14:45 | disposition home or self-care (01) ==
LOC: ED 11:15
DX: M77.51 Other enthesopathy of right foot and ankle (principal); M25.571 Pain in right ankle and joints of right foot; I12.9 Hypertensive chronic kidney disease with stage 1 through stage 4 chronic kidney disease, or unspecified chronic kidney disease; E11.22 Type 2 diabetes mellitus with diabetic chronic kidney disease; N18.9 Chronic kidney disease, unspecified; E78.5 Hyperlipidemia, unspecified; Z79.891 Long term (current) use of opiate analgesic; Z79.85 Long-term (current) use of injectable non-insulin antidiabetic drugs; Z79.02 Long term (current) use of antithrombotics/antiplatelets; Z79.899 Other long term (current) drug therapy
CPT/HCPCS: 36415; 73610; 73630; 80053; 84550; 99284; L4386

== ENCOUNTER 2025-07-27 11:27 | Day surgery (SDC) | payer MEDICARE ==
[2025-07-27 12:21] VITALS: RESP 18
[2025-07-27 12:56] LABS: Calcium 10.0 mg/dL (8.4-10.2); Carbon Dioxide 26.0 mmol/L (22-30); Creatinine 1 1.31 mg/dL (0.52-1.04); EST GLOMERULAR FILTRATION RATE 44.4 ML/MIN; Glucose 103.0 mg/dL (74-106); Potassium 3.7 mmol/L (3.5-5.1)
[2025-07-27] MEDS ORDERED: propofoL IV ONE ×3 (13:44→14:29)
[2025-07-27] MEDS ORDERED: Lactated Ringers 1,000 ML IV ONE (14:43)
[2025-07-27 15:29] VITALS: BP 127/65; PULSE 57; TEMP 97.1; O2SAT 98
--- NOTE | 2025-08-25 14:25 | OP ---
SURGERY DATE/TIME: 07/27/2025 [id number] PREOPERATIVE DIAGNOSIS: Due for screening and surveillance for colorectal cancer, personal history of polyps. POSTOPERATIVE DIAGNOSIS: Multiple polyps and diverticulosis. PROCEDURE: Colonoscopy with cold snare polypectomies and cold forceps polypectomies. SURGEON: Karla Wilde MD ANESTHESIA: MAC. ESTIMATED BLOOD LOSS: Minimal. COMPLICATIONS: None. SPECIMENS: Hepatic flexure polyp, transverse colon sessile polyp, splenic flexure polyp, descending colon polyp, sigmoid colon polyp, distal rectal polyp. INDICATIONS: This is a patient with a history of polyps who presents for screening and surveillance for colorectal cancer, here for colonoscopy. I have completed her H and P. She understands the risks, benefits, alternatives of the procedure. We have discussed the procedure details. We have completed the full H and P together and consent has been obtained. She wanted to proceed. She also completed her prep. DESCRIPTION OF PROCEDURE AND FINDINGS: She was then brought back to the endoscopy suite, laid in left lateral decubitus position, and a complete time-out was performed. First, a rectal inspection and a rectal exam were done. Once this was completed, the scope was then inserted and gently advanced to the level of the cecum. I clearly identified the ileocecal valve and the appendiceal orifice. The prep was satisfactory. There was some stool throughout the colon that had to be irrigated and suctioned. Very smaller flat lesions could be missed due to the prep. We did identify that she had diverticulosis which was more significant in the sigmoid and descending colon with multiple pockets. She also had multiple polyps that were identified. The polyps included a small hepatic flexure polyp taken with a cold snare, a moderate transverse colon sessile polyp that was 6 to 7 mm taken with a cold snare, a splenic flexure polyp that was about 4 to 5 mm taken with a cold snare, a descending polyp which was semi-pedunculated about 4 mm taken with a cold snare, a sigmoid polyp 3 mm semi-sessile taken with a cold snare, and then a distal rectal polyp that was 2 mm taken with a cold forceps. All polyps were removed in entirety. All sites were checked to ensure that there was good hemostasis and good removal, and then we also retrieved all specimens and they were each verified and then sent to Pathology. Outside of the polyps and the diverticulosis, the remainder of the colon was healthy. The patient tolerated the procedure well. The scope was able to be withdrawn with no other concerning findings in the colon. Due to the polyp history and the high number of polyps identified at this visit, our tentative plan is to recommend another colonoscopy in 3 years. I have also discussed with her home going instructions as well as her medications including blood thinners and these instructions. She will also be following up with me as an outpatient to go through the final pathology and discuss the final plan. She also has a number to call should she have any concerns or symptoms. She will now be transferred to the PACU in stable condition, and I have discussed with her family the postoperative result.
== END 2025-07-27 15:36 | disposition home or self-care (01) ==
LOC: SDC 11:27
PROVIDERS: ATTEND Surgery
DX: Z12.11 Encounter for screening for malignant neoplasm of colon (principal); Z09 Encounter for follow-up examination after completed treatment for conditions other than malignant neoplasm; Z86.0100 Personal history of colon polyps, unspecified; K57.30 Diverticulosis of large intestine without perforation or abscess without bleeding; D12.4 Benign neoplasm of descending colon; D12.3 Benign neoplasm of transverse colon; D12.5 Benign neoplasm of sigmoid colon